=== PATIENT | female | born 1950 | race Caucasian/White ===

== ENCOUNTER → 2016-06-16 | Outpatient (CLI) | payer MEDICARE ==
[~2016-06-16] VITALS: Ht 165.1 cm; Wt 75.4 kg
[~2016-06-16] MED LIST: ADVIL200 MG PO; DELTASONE10 MG PO; PRILOSEC20 MG PO; TEKTURNA300 MG PO
--- NOTE | ~2016-06-16 | OR ---
PATIENT'S NAME: DANIEL CHERY [facility] AGE: 65 Y [address] ROOM: [place] [address] LOCATION: [facility] ADMIT DATE: 06/16/2016 OR/Procedure Report DISCHARGE DATE: FAMILY PHYSICIAN: GRICELDA TAVERA NP ATTENDING PHYSICIAN: Candie Vanegas SURGEON: Candie Vanegas MD MAINTENANCE PLANNING CLERK: DATE OF PROCEDURE: 06/16/2016 PROCEDURE: Bone marrow biopsy and aspirate under anesthesia. DESCRIPTION OF PROCEDURE: The patient was placed in the prone position. Left posterior iliac crest was prepped and draped in sterile fashion. She was given sedation for the procedure. 1% lidocaine was used as anesthetic. Bone marrow aspirate was obtained without any complications. Extra aspirate was obtained for flow cytometry and cytogenetics. Then a separate needle and a separate bone insertion was used to get a bone marrow biopsy. Pressure dressing was applied. There were no complications. She is to follow up with Dr. Vanegas in approximately 10 days. CANDIE VANEGAS MD CML/modl /[id number] d: 06/16/16 0857 t: 06/17/16 1452, OPERATIVE SUMMARY
[2016-06-16 07:49] LABS: HEMATOCRIT 29.2 % (33.0-46.0); HEMOGLOBIN 9.4 g/dL (10.0-15.0); MCH 26.7 pg (27.0-34.0); MCHC 32.2 gm/dL (32.0-36.5); MPV 9.8 fl (9.4-12.4); PLATELET COUNT 113 K/uL (150-450); RBC 3.52 M/uL (3.50-5.50); RDW-CV 14.4 % (11.9-14.6)
[2016-06-16 07:50] LABS: WBC 0.5 K/uL (4.0-11.0)
[2016-06-16 08:42] LABS: ABSOLUTE NEUTROPHIL CT (ANC) 0.2 K/uL (1.8-7.8); BANDED NEUTROPHILS % 8 %; LYMPHOCYTE # 0.2 K/uL (0.8-4.0); LYMPHOCYTE % 45 %; MONOCYTE # 0.1 K/uL (0.0-1.0); SEGMENTED NEUTROPHIL # 0.1 K/uL (1.8-7.8); SEGMENTED NEUTROPHIL % 28 %
== END | disposition disaster alternative care site (69) ==
LOC: GPOC 06-15 15:00
PROVIDERS: Internal Medicine Hematology & Oncology
PROC: 07DR3ZX Extraction of Iliac Bone Marrow, Percutaneous Approach, Diagnostic (ICD-10-PCS; principal; 2016-06-16)
DX: D73.81 Neutropenic splenomegaly (principal); D72.819 Decreased white blood cell count, unspecified; D69.6 Thrombocytopenia, unspecified; D50.9 Iron deficiency anemia, unspecified; D61.818 Other pancytopenia; R16.0 Hepatomegaly, not elsewhere classified; M06.9 Rheumatoid arthritis, unspecified; R21 Rash and other nonspecific skin eruption; K52.9 Noninfective gastroenteritis and colitis, unspecified; Z88.1 Allergy status to other antibiotic agents; Z79.899 Other long term (current) drug therapy
CPT/HCPCS: J3010; J7120